=== PATIENT | male | born 2000 | race Caucasian/White ===

== ENCOUNTER → 2018-05-17 13:38 | Outpatient (CLI) | payer OTHER, SELFPAY ==
--- NOTE | 2018-05-17 13:40 | RAD_ITS ---
STUDY: X-RAY - UNILATERAL RIBS ( LEFT ) WITH CHEST REASON FOR EXAM: Male, 17 years old. Left lower rib pain. TECHNIQUE - RIBS: 4 view(s) of the ribs. TECHNIQUE - CHEST: PA COMPARISON: None. FINDINGS - RIBS: Normal visualized ribs without a demonstrated fracture. FINDINGS - CHEST: The lungs are clear and expanded. There is no demonstrated pleural abnormality. Normal size heart. Normal mediastinum and vicki. Normal visualized pulmonary arteries. Normal visualized aortic arch and descending thoracic aorta. Normal visualized thoracic spine. Normal visualized ribs, clavicles, and shoulders. There is no demonstrated abnormality of the visualized soft tissue structures of the upper abdomen. RAD/Ribs Uni Min 3V w/PA Chest IMPRESSION: RIBS: Normal x-ray examination of the ribs. CHEST: No acute cardiopulmonary process. Electronically Signed: Samantha Mcdonald MD at 13:56 EDT Tel , Service support ,
== END ==
PROVIDERS: Family Provider Pediatrics; PCP Pediatrics; Visit Provider Pediatrics
DX: R07.81 Pleurodynia (principal)
CPT/HCPCS: 71101

== ENCOUNTER → 2019-05-09 09:44 | Outpatient (CLI) | payer OTHER, SELFPAY ==
--- NOTE | 2019-05-09 09:46 | RAD_ITS ---
STUDY: X-RAY - LEFT KNEE REASON FOR EXAM: Male, 18 years old. Pain TECHNIQUE: 5 view(s) of the knee. COMPARISON: None. FINDINGS: Normal visualized distal femur. Normal visualized proximal tibia and fibula. Normal proximal tibiofibular articulation. Normal medial femorotibial compartment. Normal lateral femorotibial compartment. Normal patellofemoral articulation. The soft tissue structures are unremarkable. RAD/Knee 4 or More Views IMPRESSION: Normal x-ray examination of the knee. Electronically Signed: Nj Plummer MD at 19:33 EDT , Service support ,
--- NOTE | 2019-05-09 09:46 | RAD_ITS ---
STUDY: X-RAY - RIGHT KNEE REASON FOR EXAM: Male, 18 years old. Knee pain TECHNIQUE: 5 view(s) of the knee. COMPARISON: Prior study of 08/02/2016 FINDINGS: Normal visualized distal femur. Normal visualized proximal tibia and fibula. Normal proximal tibiofibular articulation. Normal medial femorotibial compartment. Normal lateral femorotibial compartment. Normal patellofemoral articulation. The soft tissue structures are unremarkable. RAD/Knee 4 or More Views IMPRESSION: Normal x-ray examination of the knee. Electronically Signed: Nj Plummer MD at 19:33 EDT , Service support ,
== END ==
LOC: HPRAD 09:45
PROVIDERS: Family Provider Pediatrics; PCP Pediatrics; Referring Provider Orthopaedic Surgery; Visit Provider Orthopaedic Surgery
DX: M25.561 Pain in right knee (principal); M25.562 Pain in left knee
CPT/HCPCS: 73564

== ENCOUNTER → 2019-05-23 12:33 | Outpatient (CLI) | payer OTHER, SELFPAY ==
--- NOTE | 2019-05-23 12:55 | MRI_ITS ---
STUDY: MRI LEFT KNEE REASON FOR EXAM: Male, 18 years old. Soccer injury, knee pain. TECHNIQUE: Standardized fat and water weighted pulse sequences were obtained in all 3 orthogonal planes. COMPARISON: 09/08/2016, x-ray 05/09/2019 FINDINGS: Normal medial meniscus. Normal hyaline cartilage of the medial femorotibial compartment. Normal medial femoral condyle and tibial plateau. Normal medial collateral ligamentous complex (MCL). Normal distal semimembranosus, gracilis and semitendinosus tendons. Normal lateral meniscus. Normal hyaline cartilage of the lateral femorotibial compartment. Normal lateral femoral condyle and tibial plateau. Normal proximal tibiofibular articulation. Normal lateral collateral (fibular) ligament. Normal popliteus tendon. Normal biceps femoris tendon. Chronic tear of the anterior cruciate ligament with slight anterior tibial translation. Normal posterior cruciate ligament (PCL). Shallow trochlear groove with lateral subluxation of patella and edema superolateral Hoffa's fat pad consistent with patellofemoral maltracking. Normal hyaline cartilage of the patellofemoral compartment. Normal medial and lateral patellar retinaculum. Normal quadriceps tendon. Normal patellar tendon. Normal Hoffa's fat pad. There is no joint effusion. The soft tissues are unremarkable. The otherwise visualized osseous structures are unremarkable. MRI/Lower Ext Joint Only (Routine) IMPRESSION: 1. 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 No meniscal tear. 2. Patellofemoral maltracking. Electronically Signed: Hossein Aguilera MD at 14:09 EDT Tel , Service support ,
== END ==
PROVIDERS: Family Provider Pediatrics; PCP Pediatrics; Referring Provider Orthopaedic Surgery; Visit Provider Orthopaedic Surgery
DX: S83.512A Sprain of anterior cruciate ligament of left knee, initial encounter (principal)
CPT/HCPCS: 73721

== ENCOUNTER 2019-06-01 06:03 | Day surgery (SDC) | payer OTHER, SELFPAY ==
[2019-06-01] VITALS (7 sets, daily range): BP systolic 125–138; BP diastolic 63–89; PULSE 61–98; RESP 16–18; TEMP 36.3–37; O2SAT 96–100; BMI 25.9
--- NOTE | 2019-06-01 06:57 | PCM.HP.BLA ---
History and Physical I have re-examined the patient. There are no clinical changes since date of exam. Intake Intake Visit Reasons: LEFT KNEE Allergies No Known Allergies Allergy (Unverified 05/09/19 09:29) [facility] Surgical History (Updated 05/09/19 @ 09:30 by Bill Carlos) History of tonsillectomy (Acute) Social History (Updated 05/24/19 @ 09:38 by Afshan Mcgee DO) Smoking Status: Never smoker second hand exposure: No alcohol intake: current alcohol intake frequency: holidays/special occasions only Alcohol type: hard liquor HPI LEFT KNEE: Details: Parts of this documentation were recorded by a scribe, this documentation accurately reflects the service provided and the decisions made by , Afshan Mcgee DO 05/24/19 0801. CHRISTINE HARDEN is a 18 year old M here today for F/U after having left knee MRI completed. Patient continues to have clicking of the knee but no locking. Patient was seen by dr wilson and told to f/u with dr mcgee today. instability with activities, instability and difficulty with return to sports, patient is wanting to return to sports recreationally with friends/soccer. ROS Const Reports system reviewed and no additional complaints, except as docu Eyes Reports system reviewed and no additional complaints, except as docu ENT Reports system reviewed and no additional complaints, except as docu Card Reports system reviewed and no additional complaints, except as docu Resp Reports system reviewed and no additional complaints, except as docu GI Reports system reviewed and no additional complaints, except as docu Reports system reviewed and no additional complaints, except as docu Musc Reports as per HPI Skin/Breast Reports system reviewed and no additional complaints, except as docu Neuro Yes system reviewed and no additional complaints, except as docu Psych Reports system reviewed and no additional complaints, except as docu Endo Reports system reviewed and no additional complaints, except as docu John/Lymph Reports system reviewed and no additional complaints, except as docu Aller/Immun Reports system reviewed and no additional complaints, except as docu Ortho Exam Left Knee Skin/Wound: No swelling Contralateral Normal: No Examination: No med jt line tenderness, No Lat jt line tenderness Stability: NML: Valgus 30, NML: Varus 30, 3+: Anterior Drawer Apprehension with Lateral Translation: No Patella Grind: No Assessment & Plan Problems 1. Rupture of anterior cruciate ligament of left knee, subsequent encounter S83.100D Plan Reviewed mechanism of injury and recent MRI. Explained that there are options for grafting, allo vs auto and that returning to recreation sports allows for options of btb vs hamstring. Reviewed post op restriction, 9 months until return to sports and risk of arthrofibrosis. Reviewed the pre-operative plans with the patient. Risks and benefits of the procedure were fully explained, including but not limited to infection, neurovascular injury, continued pain, arthritis, stiffness, need for further surgery, re-injury, DVT, PE, general risks of anesthesia, and loss of limb or life. The patient understands all the risks and does wish to proceed with written consent. Follow up post op or sooner if pain, swelling, numbness or associated symptoms, or concerns develop. All questions answered. Patient in agreement of plan. Coding Level of Care Code Off vis,est,level 4 Diagnoses Rupture of anterior cruciate ligament of left knee, subsequent encounter S80.280D ??Encounter type: subsequent encounter
[2019-06-01] MEDS: Cefazolin 2 GM in 0.9% Normal Saline 100 ML IV (07:11)
--- NOTE | 2019-06-01 07:17 | DCINST_ITS ---
Discharge Diet: No Restrictions - left knee ttwb, come in on tuesday for dressing change and brace adjustment w gina wayt- call for appt, call with concerns, keep brace locked in extension during ambulation and at night/sleep, may release brace to ice knee Discharge Activity: May Not Drive May shower in (days): 1 Ice area for (Minutes): 20 - Every hour while awake. Weight Bearing Status: Weight bearing as tolerated Keep extremity elevated above heart level: Operative Extremity Call your doctor if your incision/area has: Continuous Slow Oozing, Sudden Increased Bleeding, Increased Pain/ Swelling, Increased Redness, Foul Smelling Discharge Call your doctor if you observe: Fever of 101 or Higher, Coldness, Increased Pain, Numbness or Tingling, Change in Color, Calf discomfort Allergies/Adverse Reactions: Allergies No Known Allergies Allergy (Unverified 05/30/19 11:00) Medications to take at Discharge levocetirizine 5 mg tablet 5 mg PO DAILY #90 tab 05/09/19 Oxycodone HCl/Acetaminophen [Percocet 5/325] 1 - 2 tab PO Q6H PRN PRN 5 Days #28 tab 06/01/19 The following prescriptions were given: Oxycodone HCl/Acetaminophen [Percocet 5/325] 1 - 2 tab PO Q6H PRN PRN 5 Days #28 tab PRN Reason: Pain Transmission Status: Received by [facility] Primary Care Physician: Reena Mena MD [Primary Care Provider] - Test Results: Test results from this visit will be discussed in further detail at your follow- up appointment, if applicable. Please Follow Up With: Afshan Kidd, - [phone]
[2019-06-01] MEDS: Epinephrine (1 mg/ml) 1 MG/ML VIAL (07:45)
[2019-06-01] MEDS: Mupirocin Ointment 22gm Tube 1 APPLIC (08:50)
--- NOTE | 2019-06-01 09:11 | PCM.OPRPT ---
Report of Operation Date of Procedure: 06/01/19 Pre-Operative Diagnosis: left knee chronic acl tear Post-Operative Diagnosis: same Surgery/Procedure Performed:: left knee arthroscopy, acl reconstruction with autograft hamstring Type of Anesthesia:: General Anesthesiologist: Shin Caldera Drains: none Estimated Blood Loss (mL): minimal Fluids Replaced: 700cc lr Description of Procedure: Preop note Patient is a 18-year-old male who sustained an ACL injury to his left knee quite some time ago. He was able to finish his high school career without a reconstruction however continued pain and more of instability of the left knee and inability to maintain sports participation elected to proceed with left knee ACL reconstruction. On physical exam is positive Lockman positive pivot. MRI confirms chronic ACL tear. No obvious meniscal pathology. Risk benefits alternatives surgery discussed with patient. Risks include but not limited to blood loss, blood clot, infection, neurovascular, arthrofibrosis, re-tear, loss of life and loss of limb. Patient is aware and like proceed with a left knee arthroscopy repair reconstruction ACL with autograft hamstring. Operative note Patient seen and examined preop holding area. Left knee was marked. Patient brought to the operating placed supine on the operating table. Sign, anesthesia, antibiotics were speech and language specialist. The left knee was prepped and draped in usual sterile fashion with a tourniquet around his upper thigh. All bony problems well-padded SCDs placed on his contralateral limb. We marked out our incision for anterolateral anteromedial portal port placement. We also palpated the hamstring insertion and marked our incision. We then performed a pivot shift he was positive to be just elected to proceed with the graft procurement. The left leg was elevated same sports marketing internship rates her pressure of 250 torr. We then retrieved the graft of the semitendinosus isolated and standard technique and provided and prepared it on the back table with a graft link Arthrex in standard technique as well. We then began our diagnostic arthroscopy. We began and we used an anterior lateral portal began up and with a bit able to visualize patella femoral joint which is intact heel little bit of the tilt to his patella which is is chronic. He has no history of patellar dislocations. We then moved to the medial and lateral gutters there were no loose bodies. We then moved to the medial joint line. Creator anterior medial portal under direct visualization. The anteromedial portal site of the medial meniscus was intact and stable probing of the medial femoral condyle medial tibial plateau intact stable probing. The PCL was intact the ACL was torn and scarred into the PCL. The lateral meniscus was intact and stable probing in the lateral femoral condyle tibial plateau were intact. Then performed a notchplasty we measured the graft as an 8.5 on the back table. Performed a limited notchplasty in order to get the growth of the graft in the notch without impingement. We then placed our outrigger for our flip cutter on the lateral side. We consider taking meter incision brought the guide down to bone brought the flip cutter into the notch flip cut it and then cut back about 25 we then visualized the tunnel we had good back wall and we were in a good posterior placement for graft. We then introduce her suture line retrieval suture through the graft and out the lateral portal. We then made our tibial tunnel in standard technique and flip cut about 30 mm back. We then brought our up suture through the knee and through the passport that was now in the medial portal. We then brought the graft in the back table and placed it up through the lateral femoral tunnel. We did docket and we are able to palpate the button which was flipped on the lateral cortex. We then brought the sutures of the distal graft through the tibial side that was created we then brought the tibial side of the graft into the tunnel and then performed a posterior drawer and then brought the graft further down and then tied at the end of the button. We please note the prior to this after we made our tunnels we did irrigate the knee with copious muscle sterile saline use of Oh suction tip to clean out any debris that was in the knee. We then again and then brought the femoral side of the graft further into the tunnel once the distal was procured and tied down over the button. Please note that in extension there was no impingement and this was noted prior to tying the button. Again the knee was irrigated with copious muscle sterile saline. The incisions were the ACL incision was closed with 2-0 Vicryl in a running 4 Monocryl the portals were closed with nylon and the lateral incision was closed with deep 2-0 Vicryl and 4-0 nylon. Sterile dressing applied brace was applied locked in extension. Patient tolerated tolerated the procedure well no complication transferred to recovery room in stable condition. Postoperative Toe-touch weightbearing left leg next Percocet prescription Hospital pharmacy Discussed with family We will give pictures in 2 weeks Follow-up on Tuesday with Alejandro for dressing change and adjustment abrasions This note was generated with [employer] software. It may contain incorrect words, spelling, and punctuation that were not noted in checking the note before signing.
[2019-06-01] MEDS: HYDROcodone Bitartrate/Apap 5/325 Tablet PO (11:06)
== END 2019-06-01 12:23 | disposition home or self-care (01) ==
LOC: SDC 06:04 → AC 06:04
PROVIDERS: Family Provider Pediatrics; PCP Pediatrics; Referring Provider Orthopaedic Surgery; Visit Provider Orthopaedic Surgery
PROC: (CPT 29888; principal; 2019-06-01 06:55)
DX: S83.512D Sprain of anterior cruciate ligament of left knee, subsequent encounter (principal); F12.90 Cannabis use, unspecified, uncomplicated
CPT/HCPCS: 29888; 64450; J7120; J2405

== ENCOUNTER 2019-06-29 09:00 | Outpatient (RCR) | payer OTHER, SELFPAY ==
[2019-06-15 10:01] VITALS: BMI 25.9
--- NOTE | 2019-06-20 14:43 | HP.PTEVAL_ITS ---
Patient's Visit Information CHRISTINE HARDEN is a 18 year old M referred to Physical Therapy by ELLIOTT Crisostomo with a diagnosis of POST ACL RECONSTRUCTION WITH AUTOGRAFT HAMSTRING. Date of Evaluation: 06/20/19 Physical Therapist: Jeremi Priest PT, Cert MDT, OCS - Visit Plan Frequency: 2-3x /Week Duration: 4 Weeks Plan: S/P ACL RECONTRUCTION WITH AUTOGRAFT HMASTRING 06/01/19. OKAY TO UNOCK BRACE AT REST ,LOCKED WITH GAIT TTWB ,PLAN TO RETURN TO [employer] AFTER 06/29/19 ,NECT DR VISIT JUL 13. SEE ACL PROTOCAL AND GUIDELINES. INITIATE NMES,VASO ,CP,4 WAY SLR ,ROM ZACHARY,PATELLA MOBS - Subjective Findings: This 18 y/o male presenst to physical therapy with s/p ACL reconstruction with autograft hamstring on 06/01/19 at [facility] done by DR Kidd. Patient tore ACL palying soccer 2 years ago as well as Right is torn but patient has had more pain /poping on left .Patient d/c with brace locked okay to unlock at rest,crutches TTWB LE. Patient plans to see Jul 13 for f/u then progress with WB .Patient has min pain and some swelling. Patient plans to leave school June 29. Patient surgery impairs ability with walking.stairs and daily tasks and RTS. Patient condition impairs QOL. SOCIAL: Dwayne at [employer]. SPORT: Soccer - Pain Left Pain Intensity (Out of 10): 0 Pain Intensity Range: 10 - Objective POSTURE: mild foward posture. GAIT: ambulates with cruthes knee locked with NWB LE but can be TTWB. BALANCE: good - with crutches. EDEMA:joint line 39.0 cm2. PATELLA MOBILITY: mild tight inferior. AROM: 3-90 degrees supine knee flexion. MMT: NT. QUADS SET: poor. ATROPHIED : quad/vmo - Goals Goal 1:: Patient to be Independant with HEP protocal Goal Time Frame: 4-6 Weeks Goal 2:: Pateint to increase AROM knee 0-120 degrees for supine knee flexion for git Goal Time Frame: 4-6 Weeks Goal 3:: Pateint improve quad control for SLR Goal Time Frame: 4-6 Weeks Goal 4:: Patient to propgress with gait with WBAT per protocal Goal Time Frame: 4-6 Weeks - Rehabilitation Potential Physical Therapy Diagnosis: Patient under went s/p ACL reconstruction with autograft hamstring with 06/01 with decrease ROM knee,strength,gait with TTWB, thus benifit from skilled PT Rehabilitation Potential: Good - Anticipated Interventions Patient/Client Instruction: Educate patient on: Condition, Plan of Care For the Purpose of:: To decrease pain, To increase ROM, To improve muscle performance and motor function, To improve ability to perform ADL's, To improve performance and independence with ADL's, To improve ability of physical actions for home/community/work/leisure, To improve health of tissue, To decrease soft tissue restriction, To increase flexibility/ROM, To improve endurance, To improve ability to perform tasks related to life management Therapeutic Exercise to Include: Strength training, Endurance training, Balance training, Postural training, Flexibilty training, Gait and locomotor training, Passive ROM, Active ROM Comment: SEE ACL GUIDELINES For the Purpose of:: To decrease pain, To increase ROM, To improve muscle performance and motor function, To improve ability to perform ADL's, To increase tolerance to activity/condition/position, To improve performance and independence with ADL's, To improve ability of physical actions for home/community/work/leisure, To improve health of tissue, To decrease soft tissue restriction, To prevent re-injury Functional electric stimulation: Yes IF ES: Yes Cryotherapy (ice pack, ice massage): Yes Vasopneumatic device: Yes For the Purpose of:: To decrease pain, To increase ROM, To improve nutrient delivery to tissue, To increase oxygenation perfusion, To improve health of tissue, To decrease soft tissue restriction, To increase flexibility/ROM Thank you for the opportunity to evaluate your patient. For Medicare and Medicare HMO plans, please review the plan of care and approve it. It will need to be FAXED BACK to us at [phone] for Medicare purposes. For Medicare only, by signing this I certify the plan of care. Please let me know if there are questions or concerns regarding this plan of care. Physician Signature: Date:
--- NOTE | 2019-07-03 07:54 | HP.PTDCSUM ---
HP - PT D/C Summary It has been my pleasure to treat THEADORE JONG HARDEN under orders from ELLIOTT Crisostomo, for the diagnosis of POST ACL RECONSTRUCTION WITH AUTOGRAFT HAMSTRING for a total of 5 visit(s). Discharge Date: 06/29/19 Please see the following information for a summary of their discharge status. - Subjective Subjective: Pt. reports no new issues this date. Pt. reports being hEP compliant. He is returning to school next week and will be transfering his PT care there. Pt. reports no pain pre treatment this date. - Pain Left Pain Intensity (Out of 10): 0 - Overall Improvement % Improvement: 50 - Objective Objective/Function: ROM: pt. has 0-0-123deg of motion in his knee. MMT: Pt. has 4/5 HS, he is able to complete x20 SLR, but does have slight extensor lag,less than 10deg. 4/5 hipabd strength. GAIT: Pt. ambulates with crutches, but tends to apply greater wt. than desired. I instructed him to follow WBing and walk with improved pattern as he has increased lateral lean with gait. Pt. reports understanding. No pain, slight joint effusion, but no redness, well healing incision. No signs of infection - Goals Goal 1:: Patient to be Independant with HEP protocal Goal Progress: Progressing Goal 2:: Pateint to increase AROM knee 0-120 degrees for supine knee flexion for git Goal Progress: Progressing Goal 3:: Pateint improve quad control for SLR Goal Progress: Goal Met Goal 4:: Patient to propgress with gait with WBAT per protocal Goal Progress: Progressing - Plan Plan: Pt. will be transfering his care closer to school at this point in time. I gave the patient his HEP and his protocol to pass along to new PT. Pt. to call me or ortho with any questions. - D/C Information Discharge Comments: Pt. did very well with PT. Pt. progressed per protocol. He is close to full knee extension and has progessed with his flexion ROM. Pt. does have slight extensor lag with his SLR, but is improving. Pt. is john greater wt. on his leg with his ambulation, but improved with instruction. Pt. si to follow up with physician in a few weeks, but continue with PT in [place] prior. If there are questions or concerns regarding this patient's physical therapy, please feel free to call me at [phone]. Thank you for the referral of this patient. Sincerely, CRISTIANE DensonT
== END 2019-06-29 19:00 | disposition home or self-care (01) ==
LOC: PT 09:00
PROVIDERS: Family Provider Pediatrics; PCP Pediatrics; Referring Provider Physician Assistant; Visit Provider Physician Assistant
DX: Z98.890 Other specified postprocedural states (principal)
CPT/HCPCS: 97014; 97016; 97110; 97161; 97530; G0283

== ENCOUNTER → 2020-04-15 | Outpatient (CLI) | payer OTHER, SELFPAY ==
[2019-08-21 09:14] VITALS: BMI 25.9
[2020-04-15 17:42] LABS: Absolute Lymphocyte Count 2.65 X10^3/uL (0.83-4.51); Absolute Neutrophil Count 4.3 X10^3/uL (2.0-7.7); Basophil# 0.03 X10^3/uL; Basophil% 0.4 % (0-1); Eosinophil# 0.41 X10^3/uL; Hematocrit 42.7 % (40-54); Hemoglobin 14.5 g/dL (13.0-16.5); Lymphocyte # 2.65 X10^3/ul (4.0); Lymphocyte % 32.6 % (19-41); Mean Corpuscular Hgb 31.9 pg (27.0-32.0); Mean Corpuscular Volume 94.1 fL (80-94); Mean Platelet Vol. 10.1 fl (6.2-12.0); Monocyte# 0.67 X10^3/uL; Monocyte% 8.2 % (0-10); NRBC Flagged by Analyzer 0 % (0-5); Neutrophil % 52.9 % (47-70); Platelet Count 216 K/mm3 (150-450); RBC Distribution Width CV 12.2 % (11.6-14.6); RBC Distribution Width SD 42.2 fl (35.1-43.9); Red Blood Count 4.54 M/mm3 (4.6-6.2); White Blood Count 8.1 K/mm3 (4.4-11.0)
[2020-04-15 18:00] LABS: ALB/GLOB Ratio 1.3 RATIO (0.9-2.4); AST(SGOT) 24 U/L (15-37); Alanine Aminotransfer ALT/SGPT 62 U/L (16-61); Alkaline Phosphatase 61 U/L (45-117); Anion Gap 6 (5-15); BUN 12 mg/dL (7-18); BUN/Creat Ratio 13.9 RATIO (10-20); Calcium,Total 9.3 mg/dL (8.5-10.1); Chloride 105 mmol/L (98-107); Creatinine, Serum 0.86 mg/dL (0.70-1.30); EST Glomerular Filtration Rate 119 mL/min (>60); Est Glom Filt Rate - Afr Amer 144 mL/min (>60); Ferritin 52 ng/mL (26-388); Globulin 3.1 g/dL (2.2-4.2); Glucose 88 mg/dL (74-106); Iron 71 ug/dL (65-175); Iron Binding Capacity,Total 369 ug/dL (250-450); PERCENT IRON SATURATION 19.2 % (15.0-55.0); Potassium 3.9 mmol/L (3.5-5.1); Protein, Total 7.1 g/dL (6.4-8.2); Sodium Level 138 mmol/L (136-145); Thyroid Stim Hormone (TSH) 0.85 uIU/mL (0.358-3.74)
[2020-04-15 18:25] LABS: HIV - WCH Non-Reactive (Nonreactive); Vitamin D,25 Hydroxy 23.2 ng/mL
[2020-04-15 19:53] LABS: Chlamydia Trachomatis by PCR Negative (Negative); Neisserai gonorrhoeae by PCR Negative (Negative); Probe Check PASS; Sample Adequacy Control PASS; Specimen Processing Control PASS
[2020-04-17 01:57] LABS: Rapid Plasmin Reagin (RPR) NONREACTIVE (NONREACTIVE)
[2020-04-22 12:07] LABS: Testosterone, Free 12.47 ng/dL (5.00-21.00)
[2020-04-23 05:21] LABS: Testosterone, % Free 3.19 % (1.50-4.20); Testosterone, Total 391 ng/dL (264-916)
== END | disposition home or self-care (01) ==
LOC: MFPLAB 16:21
PROVIDERS: PCP Family Medicine; Referring Provider Family Medicine; Visit Provider Family Medicine
DX: M79.10 Myalgia, unspecified site (principal); M26.609 Unspecified temporomandibular joint disorder, unspecified side; R68.82 Decreased libido; Z20.9 Contact with and (suspected) exposure to unspecified communicable disease
CPT/HCPCS: 36415; 80053; 82306; 82728; 83540; 83550; 84402; 84403; 84443; 85025; 86592; 86703; 87491; 87591

== ENCOUNTER → 2023-04-22 | Outpatient (CLI) | payer OTHER, SELFPAY | END | disposition home or self-care (01) | LOC: MFPLAB 15:31 | PROVIDERS: PCP Family Medicine; Visit Provider Family Medicine | DX: T78.40XA Allergy, unspecified, initial encounter (principal); X58.XXXA Exposure to other specified factors, initial encounter | CPT/HCPCS: 36415; 86003 ==